=== PATIENT | male | born 1975 | race American Indian/Alaskan Native ===

== ENCOUNTER 2021-02-16 09:39 | Emergency (ER) | payer OTHER ==
[2021-02-16 09:48] VITALS: BP 116/76
[2021-02-16] MEDS ORDERED: HYDROcodone/ACETAMINOPHEN 10-325MG TAB PO ONE (09:51)
--- NOTE | 2021-02-16 10:39 | Vascular Lab Report ---
DUPLEX DOPPLER LOWER EXTREMITY VEINS, RIGHT INDICATION: right leg pain and swelling. TECHNIQUE: Duplex doppler imaging was performed through the veins of the right lower extremity using venous comp ression and other maneuvers. COMPARISON: No relevant prior imaging study available. FINDINGS: Right Common femoral vein: Negative. Right Superficial femoral vein: Negative. Right Popliteal vein: Negative. Right Calf veins: Negative. Additional findings: None.. IMPRESSION: Negative for DVT. Signer Name: Jhonathan Billings MD Signed: 02/16/2021 10:35 AM Workstation Name: [id number]
--- NOTE | 2021-02-16 10:52 | Emergency Department Report ---
ED Lower Extremity HPI - General Chief Complaint: Extremity Injury, Lower Stated Complaint: RT FOOT PAIN Time Seen by Provider: 02/16/21 09:48 Source: patient Mode of arrival: Wheelchair Limitations: No Limitations - History of Present Illness Initial Comments: This is a 45-year-old male nontoxic, well nourished in appearance, no acute signs of distress presents to the ED with c/o of left ankle pain and swelling with radiation to left posterior calf/leg area several days. Patient denies any injuries or trauma. Patient denies any numbness, tingling, fever, chills, nausea, vomiting, chest pain, shortness of breath, headache, stiff neck. Patient denies any joint swelling or joint redness. Patient denies decreased range of motion. Patient stated has decreased gait due to pain. Patient denies any allergies. MD Complaint: ankle injury -: days(s) Injury: Leg: Left, Ankle: Left Severity: mild Severity scale (0 -10): 8 Improves With: immobilization Worsens With: weight bearing, movement, palpation Associated Symptoms: swelling, able to partially bear weight. denies: snap/pop sensation, numbness, tingling, unable to bear weight - Related Data Previous Rx's Medication Instructions Recorded Last Taken Type Colchicine [Colcrys] 0.6 mg PO DAILY #1 tablet 02/16/21 Unknown Rx Naproxen 500 mg PO Q12H PRN #12 tablet 02/16/21 Unknown Rx Allergies Allergy/AdvReac Type Severity Reaction Status Date / Time No Known Allergies Allergy Verified 02/16/21 09:46 ED Review of Systems ROS: Stated complaint: RT FOOT PAIN Other details as noted in HPI Comment: All other systems reviewed and negative Constitutional: denies: chills, fever Eyes: denies: eye pain, eye discharge, vision change ENT: denies: ear pain, throat pain Respiratory: denies: cough, shortness of breath, wheezing Cardiovascular: denies: chest pain, palpitations Endocrine: no symptoms reported Gastrointestinal: denies: abdominal pain, nausea, diarrhea Genitourinary: denies: urgency, dysuria Musculoskeletal: denies: back pain, joint swelling, arthralgia Skin: denies: rash, lesions Neurological: denies: headache, weakness, paresthesias Psychiatric: denies: anxiety, depression Hematological/Lymphatic: denies: easy bleeding, easy bruising ED Past Medical Hx - Medications Home Medications: Home Medications Medication Instructions Recorded Confirmed Last Taken Type Colchicine [Colcrys] 0.6 mg PO DAILY #1 tablet 02/16/21 Unknown Rx Naproxen 500 mg PO Q12H PRN #12 tablet 02/16/21 Unknown Rx ED Physical Exam - General Limitations: No Limitations General appearance: alert, in no apparent distress - Head Head exam: Present: atraumatic, normocephalic - Eye Eye exam: Present: normal appearance - Neck Neck exam: Present: normal inspection, full ROM. Absent: lymphadenopathy - Respiratory Respiratory exam: Absent: respiratory distress - Cardiovascular Cardiovascular Exam: Present: regular rate - Extremities Exam Extremities exam: Present: normal inspection, full ROM, tenderness, normal capillary refill. Absent: joint swelling, calf tenderness - Expanded Lower Extremity Exam Right Hip exam: Present: normal inspection, full ROM. Absent: tenderness, swelling Upper Leg exam: Present: normal inspection, full ROM. Absent: tenderness, swelling Knee exam: Present: normal inspection, full ROM, full knee extension. Absent: tenderness, swelling, abrasion, laceration, ecchymosis, deformity, crepidus, dislocation, erythema, effusion, pain w/ pronation/supination, posterior draw sign, pain/laxity with valgus, pain/laxity with varus Lower Leg exam: Present: normal inspection, full ROM, tenderness. Absent: swelling, abrasion, laceration, ecchymosis, deformity, crepidus, dislocation, erythema, palpable cord, Brent's sign Ankle exam: Present: normal inspection, full ROM, tenderness, swelling. Absent: abrasion, laceration, ecchymosis, deformity, crepidus, dislocation, erythema, anterior draw sign Foot/Toe exam: Present: normal inspection, full ROM. Absent: tenderness, swelling, abrasion, laceration, ecchymosis, deformity, crepidus, dislocation, erythema, amputation, puncture wound, foreign body, calcaneal tenderness, tenderness at base of 5th metatarsal, nail avulsion, subungual hematoma Neuro vascular tendon exam: Present: no vascular compromise Gait: Positive: observed and limited by pain 1 - pain here 1 - pain and swelling here - Back Exam Back exam: Present: normal inspection, full ROM. Absent: tenderness, CVA tenderness (R), CVA tenderness (L), muscle spasm, paraspinal tenderness, vertebral tenderness, rash noted - Neurological Exam Neurological exam: Present: alert, oriented X3 - Psychiatric Psychiatric exam: Present: normal affect, normal mood - Skin Skin exam: Present: warm, dry, intact, normal color. Absent: rash - Other Other exam information: negative Luz test to left ankle ED Course Vital Signs 02/16/21 09:48 Temperature 98.8 F Pulse Rate 76 Respiratory 12 Rate Blood Pressure 116/76 [Left] O2 Sat by Pulse 100 Oximetry - Reevaluation(s) Reevaluation #1: 02/16/21 10:50 Patient is speaking in full sentences with no signs of distress noted. ED Lower Extremity MDM - Lab Data Lab Results 02/16/21 Range/Units 10:39 Uric Acid 12.5 H (3.5-7.6) mg/dL - Radiology Data [facility] [address] [place] [address] XRay Report Signed Patient: RAMYA GARCIA MR#: [id number] 801 : 1975 Acct:[id number] Age/Sex: 45 / M ADM Date: 02/16/21 Loc: ED Attending Dr: Ordering Physician: BERNADETTE CLEVELAND NP Date of Service: 02/16/21 Procedure(s): XR ankle 3+V RT Accession Number(s): [id number] cc: BERNADETTE CLEVELAND NP Fluoro Time In Minutes: RIGHT ANKLE 3 VIEW(S) INDICATION / CLINICAL INFORMATION: right ankle pain and swelling COMPARISON: None available. FINDINGS: BONES / JOINT(S): No acute fracture or subluxation. No significant arthritis. Mildly prominent os trigonum posterior to the talus. SOFT TISSUES: Mild bimalleolar soft tissue swelling. ADDITIONAL FINDINGS: None. Signer Name: Sheila Tesfaye MD Signed: 02/16/2021 11:14 AM Workstation Name: [id number] Transcribed By: DT Dictated By: Quinton Tesfaye MD Electronically Authenticated By: Quinton Tesfaye MD Signed Date/Time: 02/16/214 DD/ 13 TD/TT: [facility] [address] [place] [address] Vascular Lab Report Signed Patient: RAMYA GARCIA MR#: [id number] : 1975 Acct:[id number] Age/Sex: 45 / M ADM Date: 02/16/21 Loc: ED Attend ing Dr: Ordering Physician: BERNADETTE CLEVELAND NP Date of Service: 02/16/21 Procedure(s): VL venous duplex LE RT Accession Number(s): [id number] cc: BERNADETTE CLEVELAND NP DUPLEX DOPPLER LOWER EXTREMITY VEINS, RIGHT INDICATION: right leg pain and swelling. TECHNIQUE: Duplex doppler imaging was performed through the veins of the right lower extremity using venous compression and other maneuvers. COMPARISON: No relevant prior imaging study available. FINDINGS: Right Common femoral vein: Negative. Right Superficial femoral vein: Negative. Right Popliteal vein: Negative. Right Calf veins: Negative. Additional findings: None.. IMPRESSION: Negative for DVT. Signer Name: Jhonathan Billings MD Signed: 02/16/2021 10:35 AM Workstation Name: [id number] Transcribed By: Dictated By: Jhonathan Billings MD Electronically Authenticated By: Jhonathan Billings MD Signed Date/Time: 02/16/215 DD/ 33 TD/TT: - Medical Decision Making This is a 45-year-old male that presents with gout flare. Patient is stable and was examined by me. Patient is notified of the labs and imaging results with no questions noted by the patient. Patient received [place] for pain, Decadron and colchicine. Patient stated family member will drive patient home after discharge due to possible drowsiness. Patient has elevated uric acid. Patient was instructed to follow-up with a primary care doctor in 3-5 days or if symptoms worsen and continue return to emergency room as soon as possible. At time of discharge, the patient does not seem toxic or ill in appearance. No acute signs of distress noted. Patient agrees to discharge treatment plan of care. No further questions noted by the patient. Critical care attestation.: If time is entered above; I have spent that time in minutes in the direct care of this critically ill patient, excluding procedure time. ED Disposition Clinical Impression: Gout flare Qualifiers: Gout site: ankle Gout etiology: unspecified cause Laterality: right Qualified Code(s): M10.9 - Gout, unspecified Disposition: HOME / SELF CARE / HOMELESS Is pt being admited?: No Does the pt Need Aspirin: No Condition: Stable Instructions: Low-Purine Eating Plan Additional Instructions: Follow-up with a primary care doctor in 3-5 days or if symptoms worsen and continue return to emergency room as soon as possible. Prescriptions: Colchicine [Colcrys] 0.6 mg PO DAILY #1 tablet Naproxen 500 mg PO Q12H PRN #12 tablet PRN Reason: Pain , Severe (7-10) Referrals: PRIMARY MD WILFREDO [Primary Care Provider] - 3-5 Days FORD HOUSER MD [Staff Physician] - 3-5 Days Forms: Work/School Release Form(ED) Time of Disposition: 11:52
--- NOTE | 2021-02-16 11:19 | XRay Report ---
RIGHT ANKLE 3 VIEW(S) INDICATION / CLINICAL INFORMATION: right ankle pain and swelling COMPARISON: None available. FINDINGS: BONES / JOINT(S): No acute fracture or subluxation. No significant arthritis. Mildly prominent os tri gonum posterior to the talus. SOFT TISSUES: Mild bimalleolar soft tissue swelling. ADDITIONAL FINDINGS: None. Signer Name: Sheila Tesfaye MD Signed: 02/16/2021 11:14 AM Workstation Name: [email or web address]
[2021-02-16] MEDS ORDERED: dexAMETHasone 20 MG/5 ML VIAL IM ONE (11:38)
[2021-02-16] MEDS ORDERED: COLCHICINE 0.6 MG TAB PO ONE (12:00)
== END 2021-02-16 12:26 | disposition home or self-care (01) ==
LOC: ED 09:39
DX: M10.9 Gout, unspecified (principal); M25.572 Pain in left ankle and joints of left foot; Z79.899 Other long term (current) drug therapy
CPT/HCPCS: 36415; 73610; 84550; 93971; 96372; 99284; J1100

== ENCOUNTER 2021-07-02 16:46 | Emergency (ER) | payer OTHER ==
--- NOTE | 2021-07-02 21:39 | Emergency Department Report ---
ED Extremity Problem HPI - General Chief complaint: Pain General Stated complaint: RT FOOT PAIN Source: patient Mode of arrival: Ambulatory Limitations: Physical Limitation - History of Present Illness Initial comments: Patient is a 45-year-old -[place] male with a history of morbid obesity, stage III chronic kidney disease, hypertension and chronic gouty arthropathy who presents to the ED with acute onset persistent right ankle and foot pain with swelling for the last 3 days stating that the pain is characteristic of his chronic gouty arthropathy flareup. Patient states that he has not taken any medications since he cannot take any anti-inflammatory medic pain medications due to his chronic kidney disease. Patient denies dizziness, syncope, chest pain or shortness of breath, fall, traumatic injury, numbness and tingling or weakness of lower extremities bilaterally, low back pain, dysuria, hematuria, heavy lifting or fever and chills. MD Complaint: extremity pain (right foot and ankle pain with swelling), extremity swelling (right ankle and foot), joint swelling, joint paint (right ankle and foot swelling and pain), other (Gouty flare ups) -: Sudden, days(s) (3) Location: right, lower extremity (foot and ankle) History of Same: Yes (chronic gouty arthropathy) -: Yes arthralgia (right ankle and foot), No fever, No associated dyspnea, No associated chest pain Radiation: none Severity scale (0 -10): 8 Quality: aching, sharp, constant Consistency: constant Improves with: nothing Worsens with: weight bearing, walking, exertion, palpation Associated Symptoms: denies other symptoms, arthralgias (right ankle and foot). denies: chest pain, shortness of breath, fever, rash - Related Data Previous Rx's Medication Instructions Recorded Last Taken Type Colchicine [Colcrys] 0.6 mg PO DAILY #1 tablet 02/16/21 Unknown Rx Naproxen 500 mg PO Q12H PRN #12 tablet 02/16/21 Unknown Rx Acetaminophen [Tylenol] 500 mg PO Q6HR PRN #40 tablet 07/02/21 Unknown Rx predniSONE [Deltasone] 60 mg PO QDAY #15 tab 07/02/21 Unknown Rx traMADoL [Ultram] 50 mg PO Q6HR PRN #15 tablet 07/02/21 Unknown Rx Allergies Allergy/AdvReac Type Severity Reaction Status Date / Time No Known Allergies Allergy Verified 02/16/21 09:46 ED Review of Systems ROS: Stated complaint: RT FOOT PAIN Other details as noted in HPI Constitutional: denies: chills, fever Eyes: denies: eye pain, eye discharge, vision change ENT: denies: ear pain, throat pain Respiratory: denies: cough, shortness of breath, wheezing Cardiovascular: denies: chest pain, palpitations Endocrine: no symptoms reported Gastrointestinal: denies: abdominal pain, nausea, diarrhea Genitourinary: denies: urgency, dysuria Musculoskeletal: joint swelling (Right ankle and foot swelling and pain), arthralgia (right ankle and foot pain with swelling). denies: back pain Skin: denies: rash, lesions Neurological: denies: headache, weakness, paresthesias Psychiatric: denies: anxiety, depression Hematological/Lymphatic: denies: easy bleeding, easy bruising ED Past Medical Hx - Past Medical History Hx Hypertension: Yes Hx Renal Disease: Yes (Stage III CKD) Hx Arthritis: Yes (Gouty arthropathy) Additional medical history: Morbid obesity - Medications Home Medications: Home Medications Medication Instructions Recorded Confirmed Last Taken Type Colchicine [Colcrys] 0.6 mg PO DAILY #1 tablet 02/16/21 Unknown Rx Naproxen 500 mg PO Q12H PRN #12 tablet 02/16/21 Unknown Rx Acetaminophen [Tylenol] 500 mg PO Q6HR PRN #40 tablet 07/02/21 Unknown Rx predniSONE [Deltasone] 60 mg PO QDAY #15 tab 07/02/21 Unknown Rx traMADoL [Ultram] 50 mg PO Q6HR PRN #15 tablet 07/02/21 Unknown Rx ED Physical Exam - General Limitations: Physical Limitation General appearance: alert, in no apparent distress - Head Head exam: Present: atraumatic, normocephalic, normal inspection - Eye Eye exam: Present: normal appearance, PERRL, EOMI Pupils: Present: normal accommodation - ENT ENT exam: Present: normal exam, normal orophraynx, mucous membranes moist, TM's normal bilaterally, normal external ear exam - Neck Neck exam: Present: normal inspection, full ROM. Absent: tenderness - Respiratory Respiratory exam: Present: normal lung sounds bilaterally. Absent: respiratory distress, wheezes, rales, rhonchi, chest wall tenderness, accessory muscle use, prolonged expiratory - Cardiovascular Cardiovascular Exam: Present: regular rate, normal rhythm, normal heart sounds. Absent: systolic murmur, diastolic murmur, rubs, gallop - GI/Abdominal GI/Abdominal exam: Present: soft, normal bowel sounds. Absent: tenderness, guarding, hyperactive bowel sounds, hypoactive bowel sounds - Extremities Exam Extremities exam: Present: normal inspection, full ROM, tenderness (Palpable right ankle and foot tenderness with mild swelling), normal capillary refill, joint swelling. Absent: pedal edema, calf tenderness - Back Exam Back exam: Present: normal inspection, full ROM. Absent: tenderness, CVA tender ness (R), CVA tenderness (L), muscle spasm, paraspinal tenderness - Neurological Exam Neurological exam: Present: alert, oriented X3, CN II-XII intact, normal gait, reflexes normal - Psychiatric Psychiatric exam: Present: normal affect, normal mood - Skin Skin exam: Present: warm, dry, intact, normal color. Absent: rash ED Course Vital Signs 07/02/21 17:00 Temperature 99.2 F Pulse Rate 81 Respiratory 20 Rate Blood Pressure 119/82 O2 Sat by Pulse 96 Oximetry ED Medical Decision Making - Medical Decision Making This is a 45-year-old -[place] male with a history of morbid obesity, stage III chronic kidney disease, hypertension and chronic gouty arthropathy who presents to the ED with acute onset persistent right ankle and foot pain with swelling for the last 3 days stating that the pain is characteristic of his chronic gouty arthropathy flareup. Patient states that he has not taken any medications since he cannot take any anti-inflammatory medic pain medications due to his chronic kidney disease. In the ED, patient is alert and oriented x3 and is not in any distress. Patient was treated for pain in the ED and was discharged home on pain medications based on the history and physical exam findings consistent with acute gouty arthropathy flareup. Patient was advised to follow-up with his primary care physician in 7 to 10 days for reevaluation or return to the ED immediately if symptoms get worse. - Differential Diagnosis Gouty of neuropathy; osteoarthritis; muscle strain; tendinitis Critical care attestation.: If time is entered above; I have spent that time in minutes in the direct care of this critically ill patient, excluding procedure time. ED Disposition Clinical Impression: Chronic gouty arthropathy Gout flare Qualifiers: Gout site: multiple sites Gout etiology: unspecified cause Qualified Code(s): M10.9 - Gout, unspecified Disposition: 01 HOME / SELF CARE / HOMELESS Is pt being admited?: No Does the pt Need Aspirin: No Condition: Stable Instructions: Low-Purine Eating Plan Additional Instructions: Take medication with food, drink plenty of fluids and follow-up with your primary care physician in 7 to 10 days for reevaluation. Return to the ED imme diately if symptoms get worse. Prescriptions: Acetaminophen [Tylenol] 500 mg PO Q6HR PRN #40 tablet PRN Reason: Pain , Severe (7-10) predniSONE [Deltasone] 60 mg PO QDAY #15 tab traMADoL [Ultram] 50 mg PO Q6HR PRN #15 tablet PRN Reason: Pain Referrals: [facility] [Provider Group] - 7-10 days Time of Disposition: 21:42 Print Language: [place]
[2021-07-02] MEDS ORDERED: oxyCODONE /ACETAMINOPHEN 5-325MG TAB PO ONE (21:47)
[2021-07-02] MEDS ORDERED: ONDANSETRON 4 MG ODT TAB PO ONE (21:47)
[2021-07-02] MEDS ORDERED: predniSONE 20 MG TAB PO ONE (21:47)
[2021-07-02 22:27] VITALS: BP 126/84
== END 2021-07-02 22:24 | disposition home or self-care (01) ==
LOC: ED 16:46
DX: M1A.9XX0 Chronic gout, unspecified, without tophus (tophi) (principal); I12.9 Hypertensive chronic kidney disease with stage 1 through stage 4 chronic kidney disease, or unspecified chronic kidney disease; N18.30 Chronic kidney disease, stage 3 unspecified; E66.01 Morbid (severe) obesity due to excess calories
CPT/HCPCS: 99282; J3490; Q0162